=== PATIENT | female | born 1955 | race Caucasian/White ===

== ENCOUNTER → 2016-08-03 | Day surgery (SDC) | payer OTHER ==
[~2016-08-03] MED LIST: FIORTAB4; LACTATED RINGER'S 1000 ML INJ 1,000 ML ONE; LIDOCAINE 1%/EPINEPHrine 1:100,000 SOLN 20 ML VIAL ONE; LIDOCAINE 1%/EPINEPHrine 1:100,000 SOLN 50 ML VIAL ONE; MIDAZOLAM HCL 2 MG/2 ML VIAL ONE; PROPOFOL 200 MG/20 ML AMP IV ONE; SYNT112T
--- NOTE | 2016-08-03 14:22 | TN ---
cc: KRISTINA STEVENSON M.D. DATE OF SURGERY: 08/03/2016 PREOPERATIVE DIAGNOSIS Subcutaneous lipomatous mass posterior left neck. POSTOPERATIVE DIAGNOSIS Subcutaneous lipomatous mass posterior left neck. PROCEDURE Excision 6 cm subcutaneous lipomatous mass posterior left neck with two-layer closure. SURGEON Dr. Kristina Stevenson. ANESTHESIA General. INDICATIONS A very pleasant 60-year-old woman who presented with a palpable mass in the posterior left neck that has increased in size. She is desirous of surgical excision. INTRAOPERATIVE FINDINGS Multilobulated benign-appearing lipomatous mass removed and sent to pathology. Estimated blood loss less than 5 mL. DESCRIPTION OF PROCEDURE IN DETAIL The patient was identified as Mallika Power, taken to the operating room and placed in the supine position. Sequential compression devices were placed on bilateral lower extremities. Following induction of adequate general anesthesia with a laryngeal mask the patient was placed in the right lateral decubitus position with all pressure points padded on a perry bag and with an axillary roll. Posterior left neck was prepped and draped in usual sterile fashion with Betadine. A time-out procedure was performed. Following completion of time-out procedure to everyone's satisfaction within the room, proposed incision along the lines of skin was made with a marking pen and infiltrated with 1% lidocaine with epinephrine. Incision was carried out with a scalpel and hemostasis was controlled with electrocautery. Dissection continued posteriorly using retractor and Metzenbaum scissor and the mass was from surrounding tissues. Electrocautery was used on small bleeding points. Once the mass was removed in its entirety, the wound was irrigated with saline. Small bleeding points were controlled with electrocautery. The wound was closed in two layers with 3-0 Vicryl, closing the space the lipomatous mass occupied and 4-0 Monocryl in subcuticular position of the skin. Dressings were applied, Mastisol, half-inch brown Steri-Strips, a gauze and Tegaderm. The patient tolerated the procedure without apparent complication. Sponge, needle and instrument counts were correct at the end of the case. MD SAYRA Potter/HOMER /1:43 PM /2:11 PM
== END | disposition home or self-care (01) ==
LOC: ESDC 11:42
PROVIDERS: ATTEND Surgery Trauma Surgery
DX: D17.0 Benign lipomatous neoplasm of skin and subcutaneous tissue of head, face and neck (principal)
CPT/HCPCS: 00300; 21552; 88305; J2250; J3010; J7120; 88304